=== PATIENT | female | born 1980 | race Caucasian/White ===

== ENCOUNTER 2019-03-31 10:48 | Emergency (ER) | payer OTHER, SELFPAY ==
[2019-03-31 10:49] VITALS: BP 138/71; PULSE 116; RESP 21; TEMP 37; O2SAT 100; BMI 30.1
--- NOTE | 2019-03-31 11:03 | EKG12_ITS ---
Test Reason : CP Blood Pressure : / mmHG Vent. Rate : 114 BPM Atrial Rate : 114 BPM P-R Int : 130 ms QRS Dur : 078 ms QT Int : 352 ms P-R-T Axes : 062 065 -40 degrees QTc Int : 485 ms Sinus tachycardia with Premature atrial complexes Nonspecific ST and T wave abnormality Abnormal ECG Confirmed by PETE CASTILLO, NELLY ([id number]), medical transcription editor SHIV CARLSON ([id number]) on 04/02/2019 9:29:38 AM Referred By: Confirmed By:NELLY FREEMAN MD
--- NOTE | 2019-03-31 11:03 | CT_ITS ---
STUDY: CT BRAIN WITHOUT CONTRAST REASON FOR EXAM: Female, 38 years old. TINGLING IN EXTREMITIES, DIZZINESS RADIATION DOSAGE (If Supplied By Facility): CTDIvol = ( 44.99 ) mGy, DLP = ( 745.49 ) mGycm TECHNIQUE: Transaxial CT imaging of the brain was performed without administration of intravenous contrast material. Individualized dose optimization techniques were used for this CT. COMPARISON: No relevant priors. FINDINGS: Normal soft tissue structures. Normal calvarium. Normal size ventricles and extra-axial spaces for the patient''s age. Normal white matter tracts of the cerebral hemispheres. Normal basal ganglia and thalami. Normal brainstem. Normal cerebellum. There is no intracranial hemorrhage. There are no findings of an acute ischemic infarction. Normal visualized paranasal sinuses. CT/Brain/Head without Contrast IMPRESSION: Normal unenhanced CT scan of the brain. Electronically Signed: Gurpreet Rosario MD ([place]) at 12:31 EST , Service support ,
--- NOTE | 2019-03-31 11:03 | RAD_ITS ---
STUDY: X-RAY CHEST REASON FOR EXAM: Female, 38 years old. CHEST PAIN TECHNIQUE: Single AP portable view of the chest. COMPARISON: None. FINDINGS: Neck or EKG The lungs are clear and expanded. There is no demonstrated pleural abnormality. Normal size heart. Normal mediastinum and lea. Normal visualized pulmonary arteries. Normal visualized aortic arch and descending thoracic aorta. Normal visualized thoracic spine. Normal visualized ribs, clavicles, and shoulders. There is no demonstrated abnormality of the visualized soft tissue structures of the upper abdomen. RAD/Chest 1 View (Portable) IMPRESSION: Nonacute portable x-ray examination of the chest. Electronically Signed: Gurpreet Rosario MD ([place]) at 12:04 EST , Service support ,
--- NOTE | 2019-03-31 11:06 | ED.VIS.GEN ---
History of Present Illness Informant: Patient, Family Narrative: 38-year-old female presents with concern for tingling and chest tightness. States that on the way to [employer] this morning she began feeling like she was going to pass out. States that she did begin having tingling and numbness across her entire body. States that she felt her heart racing and got chest tightness. Denies any change in vision, headache, neck pain. Denies any recent head injury. at the bedside states that 4 days ago while at [employer] she had similar symptoms. Patient has no history of anxiety or panic attacks. <Andreas Riley - Last Filed: 03/31/19 17:36> <Abe Rodrigues - Last Filed: 03/31/19 23:49> Chief Complaint: General Illness Past Medical History Prior records reviewed: Yes Past Medical History: None Lives: With Family Smoking Status: Never smoker Alcohol: None Drugs: None <Andreas Riley - Last Filed: 03/31/19 17:36> <Abe Rodrigues - Last Filed: 03/31/19 23:49> - Allergies and Home Meds Allergies/Adverse Reactions: Allergies No Known Allergies Allergy (Verified 10/22/14 19:42) Primary Care Physician: Care Physician,No Primary [NON-STAFF] - Review of Systems General: Denies: Chills, Fever, Sweats Eyes: Denies: Visual changes - bilaterally, Diplopia ENT: Denies: Rhinorrhea, Sore throat Cardiovascular: Reports: Chest pain, Heart racing. Denies: Palpitations Respiratory: Reports: Dyspnea. Denies: Cough, Dyspnea on exertion Gastrointestinal: Denies: Abdominal pain, Nausea, Vomiting, Diarrhea, Melena, Hematochezia Genitourinary: Denies: Dysuria, Hematuria, Frequency Musculoskeletal: Denies: Back pain, Extremity Pain Skin: Denies: Rash, Wounds Neurological: Reports: Parasthesia, Numbness. Denies: Headache, Weakness <Andreas Riley - Last Filed: 03/31/19 17:36> Physical Exam Vital Signs/Narrative: Vital Signs Temp Pulse Resp BP Pulse Ox 03/31/19 10:49 98.6 F 116 H 21 H 138/71 H 100 Inital Vital Signs reviewed: Yes General: Well nourished, Well developed, No Acute Distress Head: Normocephalic, Atraumatic Eyes: Perrl, EOMI ENT: Moist mucous membranes, No rhinorrhea Neck: Supple, Nontender Cardiovascular: Regular rhythm, No murmurs, Tachycardia Respiratory: No distress, CTA bilaterally, Chest nontender Abdomen: Soft, Nontender, Nondistended, Normal bowel sounds Back: Nontender, Normal Inspection Extremities: Nontender, No edema Skin: Normal color, No rash Neurological: Alert, Oriented x3, Cranial nerves II-XII grossly intact, Normal Strength, Normal Sensation, Normal DTR Psychological: Normal affect, Normal Mood <Andreas Riley - Last Filed: 03/31/19 17:36> Diagnostic/Tx/Re-eval Chest X-Ray - ED: 1 View, No Acute Disease Impressions Brain CT 03/31/19 11:03 IMPRESSION: Normal unenhanced CT scan of the brain. Electronically Signed: Gurpreet Rosario MD ([place]) at 12:31 EST , Service support , Chest X-Ray 03/31/19 11:03 IMPRESSION: Nonacute portable x-ray examination of the chest. Electronically Signed: Gurpreet Rosario MD ([place]) at 12:04 EST , Service support , 03/31/19 11:03 Brain/Head without Contrast [CT] Stat Chest 1 View (Portable) [RAD] Stat Laboratory Results 03/31/19 03/31/19 03/31/19 11:00 11:00 12:08 WBC 4.7 RBC 4.44 Hgb 13.2 Hct 38.9 MCV 87.6 MCH 29.7 MCHC 33.9 RDW Std Deviation 39.2 RDW Coeff of Arie 12.1 Plt Count 256 MPV 10.6 Immature Gran % (Auto) 0.200 Neut % (Auto) 48.1 Lymph % (Auto) 40.7 [place] % (Auto) 7.6 Eos % (Auto) 2.3 Baso % (Auto) 1.1 H Absolute Neuts (auto) 2.3 Absolute Lymphs (auto) 1.92 Nucleated RBC % 0 Sodium 138 Potassium 3.3 L Chloride 108 H Carbon Dioxide 22.0 Anion Gap 8 BUN 10 Creatinine 0.95 Estim Creat Clear Calc 67.72 Est GFR (MDRD) Af Amer 86 Est GFR (MDRD) Non-Af 71 BUN/Creatinine Ratio 10.6 Glucose 160 H Calcium 8.3 L Total Bilirubin 0.80 AST 12 L ALT 19 Alkaline Phosphatase 47 Total Protein 7.0 Albumin 4.0 Globulin 3.0 Albumin/Globulin Ratio 1.3 Urine Color Urine Clarity Urine pH Ur Specific Parker Urine Protein Urine Glucose (UA) Urine Ketones Urine Occult Blood Urine Nitrite Urine Bilirubin Urine Urobilinogen Ur Leukocyte Esterase Urine RBC Urine WBC Ur Squamous Epith Cells Urine Bacteria Urine Mucus Urine Test Negative 03/31/19 12:08 WBC RBC Hgb Hct MCV MCH MCHC RDW Std Deviation RDW Coeff of Arie Plt Count MPV Immature Gran % (Auto) Neut % (Auto) Lymph % (Auto) [place] % (Auto) Eos % (Auto) Baso % (Auto) Absolute Neuts (auto) Absolute Lymphs (auto) Nucleated RBC % Sodium Potassium Chloride Carbon Dioxide Anion Gap BUN Creatinine Estim Creat Clear Calc Est GFR (MDRD) Af Amer Est GFR (MDRD) Non-Af BUN/Creatinine Ratio Glucose Calcium Total Bilirubin AST ALT Alkaline Phosphatase Total Protein Albumin Globulin Albumin/Globulin Ratio Urine Color Straw Urine Clarity Clear Urine pH 8.0 Ur Specific [place] 1.010 Urine Protein Negative Urine Glucose (UA) Normal Urine Ketones Negative Urine Occult Blood 10 H Urine Nitrite Negative Urine Bilirubin Negative Urine Urobilinogen Normal Ur Leukocyte Esterase Negative Urine RBC 0 SEEN Urine WBC 0 SEEN Ur Squamous Epith Cells 0-5 SEEN Urine Bacteria 0 SEEN Urine Mucus 0 SEEN Urine Test - Medical Decision Making Appears well and nontoxic. Anxious on initial exam. Patient tearful. No focal deficit. Work within normal limits. Chest x-ray and CT shows no acute process. Patient was given Vistaril which did resolve her symptoms. This is likely a panic attack. I had a long discussion with the patient as well as her family about this diagnosis. Patient will be given Vistaril for home and asked to follow-up with her primary care provider. Patient and family agreeable and she was discharged home in stable condition. <Andreas Riley - Last Filed: 03/31/19 17:36> - Medical Decision Making Patient was seen with me. I did a [id number] examination with the patient. Patient presents with anxiety and chest tightness that began today on her way to [employer]. Patient states she had a similar episode 5 days ago. Patient admits to some shortness of breath. Patient denies any nausea or vomiting. Vital signs are stable. Patient is afebrile. Patient is in no acute distress. Patient does appear somewhat anxious and tearful on examination. Oral mucosa is pink and moist. Neck is supple. Trachea is midline. There is no JVD. Heart was regular rate and rhythm. Lungs are clear and equal bilaterally. Abdomen is soft and nontender. Lab work was essentially within normal limits. Chest x-ray does not show any acute process. Patient was given a dose of Vistaril here. Patient felt better on reevaluation. Patient was given a prescription for Vistaril. Patient was instructed to follow-up with her primary care physician in 5 to 7 days. Patient and family understood and were agreeable with the plan. All questions were answered. <Abe Rodrigues - Last Filed: 03/31/19 23:49> ED Disposition <Andreas Riley - Last Filed: 03/31/19 17:36> <Abe Rodrigues - Last Filed: 03/31/19 23:49> - Plan for ED Patient: Disposition: Home or Assisted Living Diagnosis: Panic attack Instructions: Understanding Panic Disorder (Panic Attack), Treating Panic Disorder with Medication, Panic Attack Prescriptions: hydrOXYzine pamoate capsule [Vistaril pamoate capsule] 25 mg PO 4X/DAY PRN PRN #12 cap PRN Reason: Anxiety Prescription Printed Referrals: Care Physician,No Primary [NON-STAFF] -
[2019-03-31 11:14] LABS: Absolute Lymphocyte Count 1.92 X10^3/uL (0.83-4.51); Absolute Neutrophil Count 2.3 X10^3/uL (2.0-7.7); Basophil# 0.05 X10^3/uL; Basophil% 1.1 % (0-1); Eosinophil# 0.11 X10^3/uL; Eosinophils% 2.3 % (0-5); Hematocrit 38.9 % (37-47); Hemoglobin 13.2 g/dL (12.0-15.0); Lymphocyte # 1.92 X10^3/ul (4.0); Lymphocyte % 40.7 % (19-41); Mean Corp Hgb Conc 33.9 g/dL (32-36); Mean Corpuscular Hgb 29.7 pg (27.0-32.0); Mean Corpuscular Volume 87.6 fL (81-99); Mean Platelet Vol. 10.6 fl (6.2-12.0); Monocyte# 0.36 X10^3/uL; Monocyte% 7.6 % (0-10); NRBC Flagged by Analyzer 0 % (0-5); Neutrophil # 2.27 X10^3/uL (2.7-7.7); Neutrophil % 48.1 % (47-70); Platelet Count 256 K/mm3 (150-450); RBC Distribution Width CV 12.1 % (11.6-14.6); RBC Distribution Width SD 39.2 fl (35.1-43.9); Red Blood Count 4.44 M/mm3 (4.2-5.4); White Blood Count 4.7 K/mm3 (4.4-11.0)
[2019-03-31] MEDS: hydrOXYzine PAM 25 MG Capsule PO (11:20)
[2019-03-31] MEDS: 0.9% Normal Saline 1,000 ML 1000 ML IV (11:21)
[2019-03-31 11:28] LABS: ALB/GLOB Ratio 1.3 RATIO (0.9-2.4); AST(SGOT) 12 U/L (15-37); Alanine Aminotransfer ALT/SGPT 19 U/L (13-56); Alkaline Phosphatase 47 U/L (45-117); Anion Gap 8 (5-15); BUN 10 mg/dL (7-18); BUN/Creat Ratio 10.6 RATIO (10-20); Calcium,Total 8.3 mg/dL (8.5-10.1); Chloride 108 mmol/L (98-107); Creatinine, Serum 0.95 mg/dL (0.55-1.02); EST Glomerular Filtration Rate 71 mL/min (>60); Est Glom Filt Rate - Afr Amer 86 mL/min (>60); Estimated Creatinine Clearance 67.72 ml/min; Glucose 160 mg/dL (74-106); Potassium 3.3 mmol/L (3.5-5.1); Sodium Level 138 mmol/L (136-145)
[2019-03-31 12:20] LABS: Bacteria 0 SEEN /hpf (None Seen); Color, Urine Straw (Yellow); Glucose, Dipstick Normal (Normal); Ketone-Dipstick Negative (Negative); Leukocyte Esterase-Dipstick Negative /ul (Negative); Mucous, Urine 0 SEEN /hpf (<or=2+); Nitrite-Dipstick Negative (Negative); Occult Blood-Urine 10 /ul (Negative); Protein-Dipstick Negative (Negative); Red Blood Cells-Urine 0 SEEN /hpf (0-5); Urine Bilirubin Dipstick Negative (Negative); Urine Clarity Clear (Clear); Urine Urobilinogen Normal (Normal); White Blood Cells 0 SEEN /hpf (0-5)
[2019-03-31 12:21] LABS: Internal QC Validated? YES +Cl - CLEAR BKGD; Pregnancy, Urine Negative Negative
[2019-03-31 12:25] LABS: Squamous Epithelial Cells - UA 0-5 SEEN /hpf (5-10)
[2019-03-31 12:32] VITALS: PULSE 88; RESP 23; O2SAT 97
[2019-03-31 13:39] VITALS: BP 128/88; PULSE 88; RESP 18; O2SAT 98
== END 2019-03-31 13:40 | disposition home or self-care (01) ==
PROVIDERS: Emergency Provider Emergency Medicine
DX: F41.0 Panic disorder [episodic paroxysmal anxiety] (principal)
CPT/HCPCS: 70450; 71045; 80053; 81001; 81025; 85025; 93005; 96360; 96361; 99285; A4216

== ENCOUNTER → 2019-10-23 13:26 | Outpatient (CLI) | payer OTHER, SELFPAY ==
[2019-10-25 20:08] LABS: HPV Reflexed? NOT INDICATED
== END ==
PROVIDERS: Visit Provider Obstetrics & Gynecology
DX: Z12.4 Encounter for screening for malignant neoplasm of cervix (principal)
CPT/HCPCS: 88175; G0145

== ENCOUNTER → 2021-12-15 | Outpatient (CLI) | payer OTHER, SELFPAY ==
[2021-12-22 08:22] LABS: HPV APTIMA, High Risk Negative (Negative)
== END | disposition home or self-care (01) ==
PROVIDERS: Visit Provider Obstetrics & Gynecology
DX: Z12.4 Encounter for screening for malignant neoplasm of cervix (principal)
CPT/HCPCS: 87624; 88175; G0145